=== PATIENT | male | born 1980 | race Caucasian/White ===

== ENCOUNTER 2023-09-07 07:14 | Emergency (ER) | payer OTHER ==
[~2023-09-07] VITALS: Ht 182.9 cm; Wt 90.0 kg
[2023-09-07 07:32] VITALS: BP 167/100; PULSE 88; RESP 16; TEMP 98.5; O2SAT 100
== END 2023-09-07 07:57 | disposition home or self-care (01) ==
LOC: ER 07:14
DX: M54.9 Dorsalgia, unspecified (principal); R11.0 Nausea; Z87.442 Personal history of urinary calculi
CPT/HCPCS: 99281